=== PATIENT | female | born 2000 | race Caucasian/White ===

== ENCOUNTER 2025-02-10 14:26 | Outpatient (CLI) | payer OTHER, SELFPAY ==
--- NOTE | 2025-02-10 14:45 | CRLHL7_ITS ---
For Patients: As a result of the Century Cures Act, medical imaging exams and procedure reports are released immediately into your electronic medical record. You may view this report before your referring provider. If you have questions, please contact your health care provider. OB ULTRASOUND INDICATION: Dating and viability. TECHNIQUE: Real time grayscale imaging of the fetus was performed. Transvaginal. Transvaginal imaging performed to better demonstrate the endometrium and ovaries. LMP: 12/06/2024. NIMISHA by LMP: 09/12/2025. GA: 9 w, 3 d. Previous US: No. CRL: 2.6 cm. 9 w 2 d. NIMISHA: 09/13/2025. FHR: 183-190 BPM. Gestational sac: 3.6 cm. Yolk sac: 4.2 mm. Appears within normal limits. Right ovary: Within normal limits. 3.9 x 2.3 x 1.9 cm. CL. Left ovary: Within normal limits. 2.6 x 1.3 x 2.1 cm. IMPRESSION: 1. Single living intrauterine measures 9 weeks 2 days and sonographic due date 09/13/2025. 2. Lower uterine segment subchorionic hemorrhage measures 2.1 x 0.9 x 0.6 cm. 3. Corpus luteal cyst right ovary. This measures 2.0 x 1.4 x 1.3 cm. Paulino Rice M.D. Diagnostic Radiologist [email or web address]/Dictated by: Paulino Rice MD @ 02/10/2025 3:29:00 PM (Electronically Signed)
== END 2025-02-10 14:27 | disposition home or self-care (01) ==
LOC: US 14:27
PROVIDERS: Visit Provider Advanced Practice Midwife
DX: O20.9 Hemorrhage in early pregnancy, unspecified (principal); O34.81 Maternal care for other abnormalities of pelvic organs, first trimester; N83.11 Corpus luteum cyst of right ovary; Z3A.09 9 weeks gestation of pregnancy
CPT/HCPCS: 76817

== ENCOUNTER 2025-03-10 16:17 | Outpatient (CLI) | payer OTHER, SELFPAY | END 2025-03-10 16:18 | disposition home or self-care (01) | LOC: NFLDREF 16:18 | PROVIDERS: Visit Provider Advanced Practice Midwife | DX: Z34.92 Encounter for supervision of normal pregnancy, unspecified, second trimester (principal); Z34.02 Encounter for supervision of normal first pregnancy, second trimester | CPT/HCPCS: 87491; 87591 ==

== ENCOUNTER 2025-03-23 10:45 | Emergency (ER) | payer OTHER, SELFPAY ==
[2025-03-23 10:47] VITALS: BP 109/61; PULSE 81; RESP 16; TEMP 36.4; O2SAT 99; BMI 23.2
--- NOTE | 2025-03-23 11:05 | CRLHL7_ITS ---
For Patients: As a result of the Century Cures Act, medical imaging exams and procedure reports are released immediately into your electronic medical record. You may view this report before your referring provider. If you have questions, please contact your health care provider. INDICATION: Reason For Exam: slipped on ice, fell on abdomen. (Sic) COMPARISON: None available. TECHNIQUE: Grayscale pelvic ultrasound via a transabdominal approach. FINDINGS: number: 1 Position: Variable. Placental Position: Anterior. Focal retroplacental mass/bulge isoechoic uterine myometrium favored to represent a uterine contraction. However, a retroplacental hematoma due to placental abruption is included in the differential diagnosis. Short interval follow-up ultrasound is recommended to distinguish between these possibilities. Amniotic fluid: DVP 3.2cm. heart rate: 161bpm. IMPRESSION: Focal retroplacental mass/bulge isoechoic uterine myometrium favored to represent a uterine contraction. However, a retroplacental hematoma due to placental abruption is included in the differential diagnosis. OB consultation and short interval follow-up ultrasound are recommended. This was discussed with the ordering provider Silvestre Altamirano at 11:57 a.m. RN CAMP. Dictated by Madi Powell MD @ 03/23/2025 11:59:33 AM (Electronically Signed)
--- NOTE | 2025-03-23 11:25 | ED_ITS ---
HPI - Fall General Date Seen: 03/23/25 Chief Complaint: Fall/Minor Trauma Stated Complaint: 15 wk preg. Fell on abdomen Time Seen by Provider: 03/23/25 10:57 Source: patient Mode of arrival: ambulatory Limitations: no limitations History of Present Illness HPI Narrative: Patient is a 24 year old female presenting to the emergency department for concerns after a fall. She is currently 15 weeks presenting after she slipped any asymmetry in her abdomen. She does states she has some mild lower abdominal cramping bilaterally. She has not had cramping like this before she states. This happened couple hours ago now but she denies any vaginal bleeding. Denies hitting her head. Denies chest pain, shortness of breath, dysuria, diarrhea, constipation. No other concerns noted at this time. Related Data Home Medications ?Medication ?Instructions ?Recorded ?Confirmed cholecalciferol (vitamin D3) 50 50 mcg PO QDAY 5 03/23/25 mcg (2,000 unit) capsule omega 0-kll-piv-fish oil 300 1 cap PO QDAY 02/10/25 mg-1,000 mg capsule (Fish Oil) vits 168-iron 27 mg-folic 1 cap PO DAILY 01/2403/23/25 acid 800 mcg-omega3 235 mg capsule (One-A-Day -1) Allergies Allergy/AdvReac Type Severity Reaction Status Date / Time No Known Drug Allergies Allergy Verified 03/23/25 10:54 Review of Systems Status of ROS: Reports: 10 or more systems reviewed and unremarkable except as noted in History and below PFSH PFSH Medical History Asthma ?J45.909 - Unspecified asthma, uncomplicated (ICD-10) Surgical History History of tonsillectomy ?Z90.89 - Acquired absence of other organs (ICD-10) Family History Brother Benítez sarcoma Father High blood pressure Depression Anxiety Mother Anxiety Maternal Grandmother Breast cancer Social History Narrative: Education: AA degree? ? 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 ? Partner: Remy? 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 ? Pets: 4 dogs? ? Abuse: Denies past ? Unable to assess current, partner present? ? Special Diet: Denies? ? Ok with a blood transfusion: yes? ? Culture or episcopalian beliefs: denies? RISK FACTORS? ? Exercise Times/wk: none? ? Depression/Anxiety: anxiety? ? Previous Treatments: Prozac, didn't like side effects ? Therapy: none KENRICK: 6 PHQ 9: 2? ? Seat Belt Use: Routinely ? Smoking: Denies past/present? ? Alcohol/day: Denies while ? ?When not 1 a month Caffeine: none occasional pop? ? Drug Use: Denies past/present? ? What is your current living situation?: I presently have a place to live Problems where you live: no known problems In the past 12 months, utilities in danger of being shut off: no In past 12 months, lack of transportation kept you from medical appts, meetings, work, or getting things needed for daily living: no In the past 12 mos, have been you worried that your food would run out before you had money to buy more?: never true In the past 12 mos, the food you bought just didn't last and you didn't have money to buy more?: never true How often does anyone, including family, friends and others, physically hurt you : never How often does anyone, including family, friends and others, insult or talk down to you: never How often does anyone, including family, friends and others, threaten you with harm: never How often does anyone, including family, friends and others, scream or curse at you: never Exam Narrative: Exam Narrative: Const: Well-nourished, Well-developed, in mild distress Eyes: PERRL, no conjunctival injection, and symmetrical lids HENT: Atraumatic external nose and ears. Moist mucous membranes. Neck: Symmetric, trachea midline, No thyromegaly. CVS: RRR, No murmurs or gallops. Peripheral pulses 2+ and equal in all extremities RESP: Unlabored respiratory effort. Clear to auscultation bilaterally. GI: Bilateral lower abdominal and pelvic tenderness, Nondistended, No rebound or guarding. MSK:Extremities w/o deformity, Normal Active ROM Skin: Warm, Dry. No rashes or lesions. Neuro: Normal Muscle tone, No focal neurological deficits. Psych: Awake, Alert, & Oriented x3. Appropriate mood and affect. Const: Vital Signs, click to edit/add: Vital Signs - 24 hr 03/23/25 10:47 Temperature 97.6 F Pulse Rate [Pulse Oximeter] 81 Respiratory Rate 16 Blood Pressure [Le ft Upper Arm] 109/61 Pulse Oximetry 99 Oxygen Delivery Me thod Room Air Course Vital Signs Vital signs: Initial Vital Signs Temperature 97.6 F 03/23/25 10:47 Temperature Source Temporal Artery Scan 03/23/25 10:47 Pulse Rate 81 03/23/25 10:47 Respiratory Rate 16 03/23/25 10:47 Blood Pressure 109/61 03/23/25 10:47 Blood Pressure Mean 77 03/23/25 10:47 Blood Pressure Position Sitting 03/23/25 10:47 Pulse Oximetry 99 03/23/25 10:47 Oxygen Delivery Method Room Air 03/23/25 10:47 Vital Signs Temperature 97.6 F 03/23/25 10:47 Pulse Rate 81 03/23/25 10:47 Respiratory Rate 16 03/23/25 10:47 Blood Pressure 109/61 03/23/25 10:47 Pulse Oximetry 99 03/23/25 10:47 Oxygen Delivery Method Room Air 03/23/25 10:47 Temperature 97.6 F 03/23/25 10:47 Pulse Rate 81 03/23/25 10:47 Respiratory Rate 16 03/23/25 10:47 Blood Pressure 109/61 03/23/25 10:47 Pulse Oximetry 99 03/23/25 10:47 Oxygen Delivery Method Room Air 03/23/25 10:47 MDM - Fall MDM Narrative Medical decision making narrative: Patient is a 24-year-old female presenting after a fall. Considering she landed on her abdomen and she is currently will do ultrasound for better evaluation for possible placental abruption or any hemorrhages. Do not believe further lab work will be beneficial at this time. Considering she is 15 weeks along with monitoring is not indicated. Ultrasound showed a non concerning heart rate. Results also showed a retroplacental mass/bulge that could represent just a uterine contraction although cannot rule out a retroplacental hematoma. Is recommended do OB consultation her the radiologist a new short-term follow-up. I spoke to Dr. Greenwood and she states she can get this patient scheduled for an ultrasound in 1 week. Patient can follow-up with her appeals writer the same day she states. Patient is agreeable to this plan. She is safe for discharge. Was given return precautions including large melena vaginal bleeding, lightheadedness or any other concerning symptoms. Discharge Plan Discharge Clinical Impression: Pelvic pain affecting Patient Disposition: Home, Self-Care Condition: Stable Instructions: Abdominal Pain in (ED) Additional Instructions: The baby looks to be doing well at this time although you should have repeat ultrasound week to make sure everything continues to look well. If he develops severe vaginal bleeding, lightheadedness, severe abdominal pain/pelvic pain please return to the emergency department immediately for re-evaluation. I did speak to the on-call OB provider and they said they will get you scheduled for an appointment for an ultrasound and with the appeals writer the same day. If you do not hear from them within the next day or to call the [facility] to this make sure this appointment is set Prescriptions: No Action cholecalciferol (vitamin D3) 50 mcg (2,000 unit) capsule 50 mcg PO QDAY omega 6-jdu-yoc-fish oil [Fish Oil] 300-1,000 mg capsule 1 cap PO QDAY One-A-Day -1 27 mg iron- 800 mcg-235 mg capsule 1 cap PO DAILY Follow Up/Referrals: Provider,Not a Local [Primary Care Provider, Family Practice] Stand Alone Forms: [employer] Info Instructions
== END 2025-03-23 13:08 | disposition home or self-care (01) ==
PROVIDERS: Emergency Provider Student in an Organized Health Care Education/Training Program
DX: R10.23 Pelvic and perineal pain bilateral (principal); Z3A.15 15 weeks gestation of pregnancy; W18.30XA Fall on same level, unspecified, initial encounter
CPT/HCPCS: 76815; 99283; 99284